=== PATIENT | male | born 1975 | race Caucasian/White ===

== ENCOUNTER 2019-05-23 04:54 | Emergency (ER) | payer OTHER ==
[~2019-05-23] VITALS: Ht 188 cm; Wt 72.6 kg
[2019-05-23] MEDS ORDERED: NORVASC10 MG PO (05:04)
[2019-05-23] MEDS ORDERED: PREDNISONE50 MG PO (06:22)
[2019-05-23 06:31] VITALS: BP 138/78
== END 2019-05-23 06:32 | disposition home or self-care (01) ==
LOC: M.ERS 04:54
DX: T78.1XXA Other adverse food reactions, not elsewhere classified, initial encounter (principal); I10 Essential (primary) hypertension